=== PATIENT | male | born 1970 | race Caucasian/White ===

== ENCOUNTER 2016-09-09 08:51 | Observation (INO) | payer BC ==
[~2016-09-09] VITALS: Ht 177.8 cm; Wt 101.8 kg
[2016-09-09] MEDS ORDERED: HYDROmorphone 1 MG/ML, 1ML ONE (09:59)
[2016-09-09] MEDS ORDERED: KETOROLAC 30 MG/1 ML ONE (09:59)
[2016-09-09] MEDS ORDERED: KETOROLAC 30 MG/1 ML IVPush ONE (10:00)
[2016-09-09] MEDS ORDERED: HYDROmorphone 1 MG/ML, 1ML IVPush PRN (10:00)
[2016-09-09] MEDS ORDERED: SODIUM CHLORIDE FLUSH 10ML SYR IVF ONE (10:00)
[2016-09-09] MEDS ORDERED: SODIUM CHLORIDE 0.9% 1,000ML IVBOLUS ONE (10:00)
[2016-09-09 10:26] LABS: BLOOD UREA NITROGEN 13 mg/dL (7-18)
[2016-09-09 10:52] LABS: PATH.CAST-FLAG NOT PRESENT; SPERM-FLAG NOT PRESENT; SRC-FLAG NOT PRESENT; XTAL-FLAG NOT PRESENT; YLC-FLAG NOT PRESENT
[2016-09-09] MEDS ORDERED: FENO145T13 PO (12:30)
[2016-09-09] MEDS ORDERED: LOSA25TA5 PO (12:30)
[2016-09-09] MEDS ORDERED: MIDAZOLAM 1 MG/ML, 2ML ONE (12:39)
[2016-09-09] MEDS ORDERED: FENTANYL PF 250 MCG/5ML ONE (12:39)
[2016-09-09] MEDS ORDERED: METOPROLOL 1 MG/ML, 5ML IV PRN (13:00)
[2016-09-09] MEDS ORDERED: OXYcodone 5 MG/5 ML ORAL.SOL UDC PO PRN (13:00)
[2016-09-09] MEDS ORDERED: ACETAMINOPHEN 325 MG TABLET PO PRN (13:00)
[2016-09-09] MEDS ORDERED: HYDROmorphone 1 MG/ML, 1ML IV PRN (13:00)
[2016-09-09] MEDS ORDERED: EPHEDRINE 50 MG/ML, 1ML IVPush PRN (13:00)
[2016-09-09] MEDS ORDERED: FENTANYL PF 100 MCG/2ML IV PRN (13:00)
[2016-09-09] MEDS ORDERED: ONDANSETRON 2MG/ML, 2ML IVPush PRN (13:00)
[2016-09-09] MEDS ORDERED: METOCLOPRAMIDE 5 MG/ML, 2ML IV PRN (13:00)
[2016-09-09] MEDS ORDERED: hydrALAzine 20 MG/ML, 1ML IV PRN (13:00)
[2016-09-09] MEDS ORDERED: LABETALOL 5MG/ML, 20ML IV PRN (13:00)
[2016-09-09] MEDS ORDERED: PROMETHAZINE 25 MG/ML, 1ML IV PRN (13:00)
[2016-09-09] MEDS ORDERED: CEFAZOLIN 1,000 MG ONE (13:05)
[2016-09-09] MEDS ORDERED: METOCLOPRAMIDE 5 MG/ML, 2ML ONE (13:05)
[2016-09-09] MEDS ORDERED: ONDANSETRON 2MG/ML, 2ML ONE (13:05)
[2016-09-09] MEDS ORDERED: DEXAMETHASONE 4 MG/ML, 1ML ONE (13:05)
[2016-09-09] MEDS ORDERED: EPHEDRINE 50 MG/ML, 1ML ONE (13:05)
[2016-09-09] MEDS ORDERED: PHENAZOPYRIDINE 200 MG TABLET ONE (14:30)
[2016-09-09] MEDS ORDERED: OMNIPAQUE 350 MG/ML, 50 ML BOTTLE ONE (14:40)
[2016-09-09] MEDS ORDERED: PHEN-418 PO (17:15)
[2016-09-09] MEDS ORDERED: HYDR-3138 PO (17:16)
[2016-09-09 17:45] VITALS: BP 144/82
== END 2016-09-09 18:30 | disposition home or self-care (01) ==
LOC: ED 10:27 → EDIP 12:18 → 4NOR 14:35
PROVIDERS: ADMIT Urology; ATTEND Urology
DX: N13.2 Hydronephrosis with renal and ureteral calculous obstruction (principal); I10 Essential (primary) hypertension; Z98.890 Other specified postprocedural states
CPT/HCPCS: 36415; 52332; 74420; 80048; 81001; 82040; 84300; 85025; 96374; 96375; 99285; C1758; C1769; C2617; G0378; J0690; J1100; J1170; J1885; J2250; J2405; J2765; J3010; J7030; Q9967